=== PATIENT | male | born 1995 | race Two or more races ===

== ENCOUNTER 2019-01-20 18:04 | Emergency (ER) | payer MEDICAID ==
[~2019-01-20] VITALS: Ht 177.8 cm; Wt 76.2 kg
[2019-01-20 18:25] VITALS: BP 110/76
[2019-01-20 18:42] LABS: BASOPHILS % (AUTO) 0.9 % (0.0-2.0); EOSINOPHILS % (AUTO) 2.9 % (0.0-3.0); HEMOGLOBIN 16.7 G/DL (14.2-18.0); LYMPHOCYTES % (AUTO) 29.4 % (20.0-45.0); MEAN CORPUSCULAR VOLUME 82 FL (80-99); MONOCYTES % (AUTO) 6.1 % (1.0-10.0); NEUTROPHILS % (AUTO) 60.8 % (45.0-75.0); PLATELET COUNT 241 K/UL (150-450); RED BLOOD COUNT 5.58 M/UL (4.70-6.10); RED CELL DISTRIBUTION WIDTH 9.9 % (11.6-14.8); WHITE BLOOD COUNT 6.5 K/UL (4.8-10.8)
[2019-01-20 18:45] LABS: INR 1.1 (0.9-1.1)
[2019-01-20 18:46] LABS: ANION GAP 9 mmol/L (5-15); BLOOD UREA NITROGEN 13 mg/dL (7-18); CALCIUM 9.8 MG/DL (8.5-10.1); CARBON DIOXIDE 31 MMOL/L (21-32); CHLORIDE 101 MMOL/L (98-107); CREATININE 0.8 MG/DL (0.55-1.30); POTASSIUM 3.9 MMOL/L (3.5-5.1); SODIUM 141 MMOL/L (136-145)
[2019-01-20 18:51] LABS: APPEARANCE,URINE CLEAR; BILIRUBIN, URINE NEGATIVE (NEGATIVE); COLOR,URINE PALE YELLOW; GLUCOSE, URINE (UA) NEGATIVE (NEGATIVE); KETONES,URINE NEGATIVE (NEGATIVE); LEUKOCYTE ESTERASE ,URINE NEGATIVE (NEGATIVE); NITRITE,URINE NEGATIVE (NEGATIVE); PH,URINE 6 (4.5-8.0); PROTEIN,URINE NEGATIVE (NEGATIVE); UROBILINOGEN,URINE NORMAL MG/DL (0.0-1.0)
[2019-01-20 19:02] LABS: ALANINE AMINOTRANSFERASE 28 U/L (12-78); ALBUMIN/GLOBULIN RATIO 1.4 (1.0-2.7); ALKALINE PHOSPHATASE 66 U/L (46-116); ASPARTATE AMINO TRANSFERASE 20 U/L (15-37); BILIRUBIN,TOTAL 1.5 MG/DL (0.2-1.0)
[2019-01-20 19:03] LABS: BILIRUBIN,DIRECT 0.3 MG/DL (0.0-0.3)
--- NOTE | 2019-01-20 19:08 | Emergency Room Report ---
History of Present Illness General Chief Complaint: Male Urogenital Problems Source: Patient Present Illness HPI 23-year-old male no past medical history presents with left testicular pain, patient reports that he had unprotected oral sex from another woman 7 days ago, no fevers no chills no discharge, he endorses that his left testicle is hurting patient was sent here from the primary care doctor for ultrasound and UA unknown aggravating relieving factor severity is mild, constant patient presents for evaluation Allergies: Coded Allergies: No Known Allergies (Unverified , 01/20/19) Patient History Past Medical History: see triage record Reviewed Nursing Documentation: PMH: Agreed; PSxH: Agreed Nursing Documentation-PMH Past Medical History: No Stated History Review of Systems All Other Systems: negative except mentioned in HPI Physical Exam Vital Signs Date Time Temp Pulse Resp B/P (MAP) Pulse Ox O2 Delivery O2 Flow Rate FiO2 01/20/19 18:09 98.4 72 16 135/74 (94) 97 Room Air Sp02 EP Interpretation: reviewed, normal General Appearance: well appearing, no apparent distress, alert Head: normocephalic, atraumatic Eyes: bilateral eye PERRL, bilateral eye EOMI ENT: uvula midline, moist mucus membranes Neck: supple, thyroid normal, supple/symm/no masses Respiratory: no respiratory distress, no retraction, no accessory muscle use Gastrointestinal: non tender, soft, no guarding, no rebound Genitourinary: penis normal, scrotum normal, other - Executive Receptionist Hayley Hernandez RN Musculoskeletal: normal inspection Neurologic: alert, oriented x3 Psychiatric: mood/affect normal Skin: no rash, warm/dry Medical Decision Making Diagnostic Impression: Primary Impression: Possible exposure to STD ER Course 23-year-old male presents with left testicular pain, cremasteric reflex intact bilaterally, differential diagnosis includes torsion, STD exposure urethritis, will provide patient with ceftriaxone and azithromycin UA negative, testicular ultrasound unremarkable counseled patient about safe sex. Disposition home with return precautions Laboratory Tests Test 01/20/19 18:22 01/20/19 18:30 White Blood Count 6.5 K/UL (4.8-10.8) Red Blood Count 5.58 M/UL (4.70-6.10) Hemoglobin 16.7 G/DL (14.2-18.0) Hematocrit 46.0 % (42.0-52.0) Mean Corpuscular Volume 82 FL (80-99) Mean Corpuscular Hemoglobin 30.0 PG (27.0-31.0) Mean Corpuscular Hemoglobin Concent 36.4 G/DL (32.0-36.0) H Red Cell Distribution Width 9.9 % (11.6-14.8) L Platelet Count 241 K/UL (150-450) Mean Platelet Volume 6.7 FL (6.5-10.1) Neutrophils (%) (Auto) 60.8 % (45.0-75.0) Lymphocytes (%) (Auto) 29.4 % (20.0-45.0) Monocytes (%) (Auto) 6.1 % (1.0-10.0) Eosinophils (%) (Auto) 2.9 % (0.0-3.0) Basophils (%) (Auto) 0.9 % (0.0-2.0) Prothrombin Time 11.7 SEC (9.30-11.50) H Prothrombin Time INR 1.1 (0.9-1.1) PTT 27 SEC (23-33) Sodium Level 141 MMOL/L (136-145) Potassium Level 3.9 MMOL/L (3.5-5.1) Chloride Level 101 MMOL/L (98-107) Carbon Dioxide Level 31 MMOL/L (21-32) Anion Gap 9 mmol/L (5-15) Blood Urea Nitrogen 13 mg/dL (7-18) Creatinine 0.8 MG/DL (0.55-1.30) Estimate Glomerular Filtration Rate > 60 mL/min (>60) Glucose Level 94 MG/DL (74-106) Calcium Level 9.8 MG/DL (8.5-10.1) Total Bilirubin 1.5 MG/DL (0.2-1.0) H Direct Bilirubin 0.3 MG/DL (0.0-0.3) Aspartate Amino Transferase (AST) 20 U/L (15-37) Alanine Aminotransferase (ALT) 28 U/L (12-78) Alkaline Phosphatase 66 U/L (46-116) Total Protein 8.7 G/DL (6.4-8.2) H Albumin 5.0 G/DL (3.4-5.0) Globulin 3.7 g/dL Albumin/Globulin Ratio 1.4 (1.0-2.7) Urine Color Pale yellow Urine Appearance Clear Urine pH 6 (4.5-8.0) Urine Specific [place] 1.020 (1.005-1.035) Urine Protein Negative (NEGATIVE) Urine Glucose (UA) Negative (NEGATIVE) Urine Ketones Negative (NEGATIVE) Urine Blood Negative (NEGATIVE) Urine Nitrite Negative (NEGATIVE) Urine Bilirubin Negative (NEGATIVE) Urine Urobilinogen Normal MG/DL (0.0-1.0) Urine Leukocyte Esterase Negative (NEGATIVE) Last Vital Signs Date Time Temp Pulse Resp B/P (MAP) Pulse Ox O2 Delivery O2 Flow Rate FiO2 01/20/19 18:25 98.6 76 18 110/76 99 Room Air Disposition: HOME, SELF-CARE Condition: Stable Scripts Doxycycline Monohydrate* (DOXYCYCLINE MONOHYDRATE*) 100 Mg Capsule 100 MG ORAL Q12H, #28 CAP 0 Refills Prov: Shaun Soriano MD 01/20/19 Referrals: [facility],REFERRING (PCP) [facility] Keron Kim [facility] Patient Instructions: Safe Sex, Scrotal Swelling Additional Instructions: The patient was provided with discharge instructions, notified to follow-up with a primary care doctor and or specialist in the next 24-48 hours, and to return to the ED if they have worsening of their symptoms. Please note that this report is being documented using [employer] technology. This can lead to erroneous entry secondary to incorrect interpretation by the dictating instrument. Shuan Soriano MD Jan 20, 2019 19:08
[2019-01-20] MEDS ORDERED: DOXYCYCLINE MO100 MG ORAL (19:12)
[2019-01-20] MEDS ORDERED: Azithromycin 250mg tab ORAL ONE (19:15)
[2019-01-20] MEDS ORDERED: cefTRIAXone 1 GM in NS 55 ML IVPB ONE (19:15)
[2019-01-20 19:45] VITALS: BP 110/76
--- NOTE | 2019-01-22 09:51 | Diagnostic Imaging Report ---
Indication:Scrotal pain Technique: Real time grayscale and duplex Doppler imaging of the scrotum performed. Comparison: None Findings: The size, contour, and echogenicitiy of the testis appear normal bilaterally. There is no testicular mass or evidence of torsion. There is good doppler evidence of blood flow within both testes. Epididimi are unremarkable. Right testis is 3.7 x 2.4 x 3.4 cm. Left testis 3.2 x 2.2 x 3.5 cm. Impression: Negative scrotal ultrasound
== END 2019-01-20 19:45 | disposition home or self-care (01) ==
LOC: EMR 18:50
DX: N50.812 Left testicular pain (principal)
CPT/HCPCS: 36415; 76870; 80053; 81003; 82248; 85025; 85610; 85730; 87491; 87590; 96365; J0696; Q0144; Z7502; 99284